=== PATIENT | male | born 1940 | race Caucasian/White ===

== ENCOUNTER 2018-03-01 19:40 | Inpatient (IN) | payer MEDICARE ==
[~2018-03-01] VITALS: Ht 180.3 cm; Wt 110.0 kg
[2018-03-01 20:19] LABS: BASOPHILS # (AUTO) 0.01 x10^3/uL (0-0.1); BASOPHILS % (AUTO) 0 % (0-1); EOSINOPHILS # (AUTO) 0.02 x10^3/uL (0-0.4); EOSINOPHILS % (AUTO) 0 % (1-7); LYMPHOCYTES # (AUTO) 1.49 x10^3/uL (1-3.4); LYMPHOCYTES % (AUTO) 23 % (22-44); MD NO; MEAN CORPUSCULAR HEMOGLOBIN 34.3 pg (27.5-34.5); MEAN CORPUSCULAR HGB CONC 34.8 g/dL (33.2-36.2); MEAN CORPUSCULAR VOLUME 98.7 fL (81-97); MEAN PLATELET VOLUME 7.2 fL (7.4-10.4); MONOCYTES # (AUTO) 0.55 x10^3/uL (0.2-0.8); MONOCYTES % (AUTO) 9 % (2-9); NEUTROPHILS # (AUTO) 4.31 x10^3/uL (1.8-6.8); NEUTROPHILS % (AUTO) 67 % (42-75); PLATELET COUNT 327 x10^3/uL (130-400); RED BLOOD COUNT 3.96 x10^6/uL (4.38-5.82); RED CELL DISTRIBUTION WIDTH 13.7 % (9.4-14.8)
[2018-03-01 20:28] LABS: INTERNATIONAL NORMALIZED RATIO 1.06 (0.93-1.1); PROTHROMBIN TIME 11.2 Seconds (9.6-11.5)
[2018-03-01] MEDS ORDERED: EPLE25TA4 PO (20:28)
[2018-03-01] MEDS ORDERED: LOSA50TA7 PO (20:28)
[2018-03-01] MEDS ORDERED: ASPI-650 PO (20:28)
[2018-03-01] MEDS ORDERED: FLEC100T PO (20:28)
[2018-03-01] MEDS ORDERED: ATOR20TA37 PO (20:28)
[2018-03-01 20:29] LABS: ALBUMIN 4.1 g/dL (3.4-5.0); ANION GAP 7 mmol/L (5-15); CALCIUM 8.6 mg/dL (8.5-10.1); CHLORIDE 107 mmol/L (98-107); CREATININE 1.17 mg/dL (0.7-1.3)
[2018-03-01 21:05] LABS: CULTURE INDICATED? YES; MICROSCOPIC INDICATED
[2018-03-01] MEDS ORDERED: POLYETHYLENE GLYCOL 17 GM PACKET PO PRN (23:00)
[2018-03-01] MEDS ORDERED: ONDANSETRON ODT 4 MG PO PRN (23:00)
[2018-03-01] MEDS ORDERED: BISACODYL 10 MG SUPP PR PRN (23:00)
[2018-03-01] MEDS ORDERED: ACETAMINOPHEN 325 MG TABLET PO PRN (23:00)
[2018-03-01] MEDS: ATORVASTATIN 20 MG TABLET PO SCH (23:46)
[2018-03-01] MEDS: SODIUM CHLORIDE FLUSH 10ML SYR IVF SCH (23:47)
[2018-03-01] MEDS: FLECAINIDE 100MG TABLET PO SCH (23:49)
[2018-03-01 23:58] LABS: FOLATE LEVEL > 20.0 ng/mL (3.1-17.5)
[2018-03-02 00:18] VITALS: BP 134/76
[2018-03-02 04:29] LABS: BASOPHILS # (AUTO) 0.02 x10^3/uL (0-0.1); BASOPHILS % (AUTO) 0 % (0-1); EOSINOPHILS # (AUTO) 0.05 x10^3/uL (0-0.4); EOSINOPHILS % (AUTO) 1 % (1-7); LYMPHOCYTES # (AUTO) 1.81 x10^3/uL (1-3.4); LYMPHOCYTES % (AUTO) 28 % (22-44); MD NO; MEAN CORPUSCULAR HEMOGLOBIN 34.3 pg (27.5-34.5); MEAN CORPUSCULAR HGB CONC 34.7 g/dL (33.2-36.2); MEAN CORPUSCULAR VOLUME 98.7 fL (81-97); MEAN PLATELET VOLUME 7.2 fL (7.4-10.4); MONOCYTES # (AUTO) 0.62 x10^3/uL (0.2-0.8); MONOCYTES % (AUTO) 10 % (2-9); NEUTROPHILS # (AUTO) 3.92 x10^3/uL (1.8-6.8); NEUTROPHILS % (AUTO) 61 % (42-75); PLATELET COUNT 303 x10^3/uL (130-400); RED BLOOD COUNT 3.56 x10^6/uL (4.38-5.82); RED CELL DISTRIBUTION WIDTH 13.7 % (9.4-14.8)
[2018-03-02 04:41] LABS: ALANINE AMINOTRANSFERASE 27 U/L (12-78); ALBUMIN 3.4 g/dL (3.4-5.0); ANION GAP 9 mmol/L (5-15); CALCIUM 8.5 mg/dL (8.5-10.1); CHLORIDE 108 mmol/L (98-107); CREATININE 1.03 mg/dL (0.7-1.3)
[2018-03-02 04:44] LABS: ALKALINE PHOSPHATASE 53 U/L (45-117); BILIRUBIN,TOTAL 0.8 mg/dL (0.2-1.0); TOTAL PROTEIN 6.1 g/dL (6.4-8.2)
[2018-03-02 06:10] VITALS: BP 109/68
[2018-03-02] MEDS: TEMPLATE NON-FORMULARY MED. (Eplerenone 25 MG) HOMEMEDPO SCH (08:10)
[2018-03-02] MEDS: SODIUM CHLORIDE FLUSH 10ML SYR IVF SCH ×2 (08:11→22:11)
[2018-03-02] MEDS: LOSARTAN 50MG TABLET PO SCH (08:12)
[2018-03-02] MEDS: FLECAINIDE 100MG TABLET PO SCH ×2 (08:12→22:11)
[2018-03-02] MEDS: SENNA/DOCUSATE TABLET PO SCH (08:12)
[2018-03-02 08:15] VITALS: BP 106/63
[2018-03-02 13:05] VITALS: BP 98/58
[2018-03-02 19:59] VITALS: BP 111/66
[2018-03-02] MEDS: ATORVASTATIN 20 MG TABLET PO SCH (22:11)
[2018-03-03 02:00] VITALS: BP 103/66
[2018-03-03 04:43] LABS: ANION GAP 5 mmol/L (5-15); CHLORIDE 108 mmol/L (98-107); CREATININE 0.93 mg/dL (0.7-1.3)
[2018-03-03 04:52] LABS: BASOPHILS # (AUTO) 0.03 x10^3/uL (0-0.1); BASOPHILS % (AUTO) 0 % (0-1); EOSINOPHILS # (AUTO) 0.13 x10^3/uL (0-0.4); EOSINOPHILS % (AUTO) 2 % (1-7); LYMPHOCYTES # (AUTO) 2.19 x10^3/uL (1-3.4); LYMPHOCYTES % (AUTO) 28 % (22-44); MD NO; MEAN CORPUSCULAR HEMOGLOBIN 34.1 pg (27.5-34.5); MEAN CORPUSCULAR HGB CONC 34.1 g/dL (33.2-36.2); MEAN PLATELET VOLUME 7.6 fL (7.4-10.4); MONOCYTES # (AUTO) 0.69 x10^3/uL (0.2-0.8); MONOCYTES % (AUTO) 9 % (2-9); NEUTROPHILS # (AUTO) 4.82 x10^3/uL (1.8-6.8); NEUTROPHILS % (AUTO) 61 % (42-75); PLATELET COUNT 281 x10^3/uL (130-400); RED BLOOD COUNT 3.47 x10^6/uL (4.38-5.82); RED CELL DISTRIBUTION WIDTH 13.8 % (9.4-14.8)
[2018-03-03 07:54] VITALS: BP 137/73
[2018-03-03] MEDS: TEMPLATE NON-FORMULARY MED. (Eplerenone 25 MG) HOMEMEDPO SCH (09:49)
[2018-03-03] MEDS: SENNA/DOCUSATE TABLET PO SCH (09:51)
[2018-03-03] MEDS: FLECAINIDE 100MG TABLET PO SCH ×2 (09:52→21:59)
[2018-03-03] MEDS: LOSARTAN 50MG TABLET PO SCH (09:52)
[2018-03-03] MEDS: SODIUM CHLORIDE FLUSH 10ML SYR IVF SCH ×2 (10:01→22:02)
[2018-03-03 13:04] VITALS: BP 135/72
[2018-03-03] MEDS ORDERED: MIDAZOLAM 1 MG/ML, 2ML ONE (17:53)
[2018-03-03] MEDS ORDERED: FENTANYL PF 100 MCG/2ML ONE ×2 (17:53→19:03)
[2018-03-03] MEDS ORDERED: PROPOFOL 10 MG/ML, 20ML ONE (18:02)
[2018-03-03] MEDS ORDERED: ROCURONIUM 10MG/ML,5ML ONE (18:02)
[2018-03-03] MEDS ORDERED: SUCCINYLCHOLINE 20 MG/ML, 10ML ONE (18:02)
[2018-03-03] MEDS ORDERED: ONDANSETRON 2MG/ML, 2ML IV PRN (18:30)
[2018-03-03] MEDS ORDERED: LABETALOL 5MG/ML, 20ML IV PRN (18:30)
[2018-03-03] MEDS ORDERED: HYDROmorphone 1 MG/ML, 1ML IV PRN (18:30)
[2018-03-03] MEDS ORDERED: PROMETHAZINE 12.5 MG SUPP PR PRN (18:30)
[2018-03-03] MEDS ORDERED: hydrALAzine 20 MG/ML, 1ML IV PRN (18:30)
[2018-03-03] MEDS ORDERED: FENTANYL PF 100 MCG/2ML IV PRN (18:30)
[2018-03-03] MEDS ORDERED: ONDANSETRON ODT 8 MG PO PRN (18:30)
[2018-03-03] MEDS ORDERED: OXYcodone 5 MG/5 ML ORAL.SOL UDC ONE (19:03)
[2018-03-03] MEDS: OXYcodone 5 MG/5 ML ORAL.SOL UDC PO PRN ×2 (19:06→23:58)
[2018-03-03 19:52] VITALS: BP 129/69
[2018-03-03] MEDS ORDERED: CEFAZOLIN PMX 1GM/50ML 50 ML IV SCH (20:00)
[2018-03-03] MEDS: OPIUM/BELLADONNA SUPP.RECT 16.2-30 MG PR PRN (21:40)
[2018-03-03] MEDS: GENTAMICIN 80 MG in SODIUM CHLORIDE 0.9% 50 ML IV SCH (21:59)
[2018-03-03] MEDS: ATORVASTATIN 20 MG TABLET PO SCH (21:59)
[2018-03-04] MEDS: CEFAZOLIN PMX 1GM/50ML 50 ML IV SCH ×3 (02:45→17:44)
[2018-03-04 05:56] LABS: BASOPHILS # (AUTO) 0.03 x10^3/uL (0-0.1); BASOPHILS % (AUTO) 0 % (0-1); EOSINOPHILS # (AUTO) 0.09 x10^3/uL (0-0.4); EOSINOPHILS % (AUTO) 1 % (1-7); LYMPHOCYTES # (AUTO) 2.03 x10^3/uL (1-3.4); LYMPHOCYTES % (AUTO) 24 % (22-44); MD NO; MEAN CORPUSCULAR HEMOGLOBIN 34.7 pg (27.5-34.5); MEAN CORPUSCULAR HGB CONC 34.7 g/dL (33.2-36.2); MEAN PLATELET VOLUME 7.8 fL (7.4-10.4); MONOCYTES # (AUTO) 0.59 x10^3/uL (0.2-0.8); MONOCYTES % (AUTO) 7 % (2-9); NEUTROPHILS # (AUTO) 5.64 x10^3/uL (1.8-6.8); NEUTROPHILS % (AUTO) 67 % (42-75); PLATELET COUNT 264 x10^3/uL (130-400); RED BLOOD COUNT 3.18 x10^6/uL (4.38-5.82); RED CELL DISTRIBUTION WIDTH 13.8 % (9.4-14.8)
[2018-03-04 06:06] LABS: ANION GAP 5 mmol/L (5-15); CHLORIDE 108 mmol/L (98-107)
[2018-03-04 06:08] LABS: CREATININE 0.84 mg/dL (0.7-1.3)
[2018-03-04] MEDS: GENTAMICIN 80 MG in SODIUM CHLORIDE 0.9% 50 ML IV SCH ×3 (06:11→22:48)
[2018-03-04 08:00] VITALS: BP 123/72
[2018-03-04] MEDS: TEMPLATE NON-FORMULARY MED. (Eplerenone 25 MG) HOMEMEDPO SCH (09:00)
[2018-03-04] MEDS: SODIUM CHLORIDE FLUSH 10ML SYR IVF SCH ×2 (09:03→22:49)
[2018-03-04] MEDS: FLECAINIDE 100MG TABLET PO SCH ×2 (09:04→22:48)
[2018-03-04] MEDS: LOSARTAN 50MG TABLET PO SCH (09:04)
[2018-03-04] MEDS: SENNA/DOCUSATE TABLET PO SCH (09:04)
[2018-03-04 13:55] VITALS: BP 107/68
[2018-03-04] MEDS: OPIUM/BELLADONNA SUPP.RECT 16.2-30 MG PR PRN ×2 (16:40→23:10)
[2018-03-04 19:48] VITALS: BP 109/64
[2018-03-04] MEDS: ATORVASTATIN 20 MG TABLET PO SCH (22:48)
[2018-03-05 00:38] VITALS: BP 100/59
[2018-03-05] MEDS: CEFAZOLIN PMX 1GM/50ML 50 ML IV SCH ×3 (02:07→18:23)
[2018-03-05] MEDS: OPIUM/BELLADONNA SUPP.RECT 16.2-30 MG PR PRN ×3 (05:11→18:04)
[2018-03-05 05:15] LABS: BASOPHILS # (AUTO) 0.05 x10^3/uL (0-0.1); BASOPHILS % (AUTO) 1 % (0-1); EOSINOPHILS # (AUTO) 0.34 x10^3/uL (0-0.4); EOSINOPHILS % (AUTO) 4 % (1-7); LYMPHOCYTES # (AUTO) 1.91 x10^3/uL (1-3.4); LYMPHOCYTES % (AUTO) 23 % (22-44); MD NO; MEAN CORPUSCULAR HGB CONC 35.3 g/dL (33.2-36.2); MEAN CORPUSCULAR VOLUME 98.9 fL (81-97); MEAN PLATELET VOLUME 7.7 fL (7.4-10.4); MONOCYTES # (AUTO) 0.78 x10^3/uL (0.2-0.8); MONOCYTES % (AUTO) 9 % (2-9); NEUTROPHILS # (AUTO) 5.22 x10^3/uL (1.8-6.8); NEUTROPHILS % (AUTO) 63 % (42-75); PLATELET COUNT 264 x10^3/uL (130-400); RED BLOOD COUNT 3.04 x10^6/uL (4.38-5.82); RED CELL DISTRIBUTION WIDTH 13.4 % (9.4-14.8)
[2018-03-05 05:26] LABS: ALBUMIN 2.9 g/dL (3.4-5.0); ANION GAP 8 mmol/L (5-15); CALCIUM 7.9 mg/dL (8.5-10.1); CHLORIDE 107 mmol/L (98-107)
[2018-03-05 05:30] LABS: ALANINE AMINOTRANSFERASE 19 U/L (12-78); ALKALINE PHOSPHATASE 50 U/L (45-117); BILIRUBIN,TOTAL 0.5 mg/dL (0.2-1.0); CREATININE 0.89 mg/dL (0.7-1.3); TOTAL PROTEIN 5.5 g/dL (6.4-8.2)
[2018-03-05] MEDS: GENTAMICIN 80 MG in SODIUM CHLORIDE 0.9% 50 ML IV SCH ×3 (06:31→22:37)
[2018-03-05 06:45] VITALS: BP 102/64
[2018-03-05] MEDS: TEMPLATE NON-FORMULARY MED. (Eplerenone 25 MG) HOMEMEDPO SCH (09:00)
[2018-03-05] MEDS: SENNA/DOCUSATE TABLET PO SCH (09:00)
[2018-03-05] MEDS: SODIUM CHLORIDE FLUSH 10ML SYR IVF SCH ×2 (09:00→20:19)
[2018-03-05] MEDS: LOSARTAN 50MG TABLET PO SCH (09:21)
[2018-03-05] MEDS: FLECAINIDE 100MG TABLET PO SCH ×2 (09:22→20:18)
[2018-03-05 14:15] VITALS: BP 96/57
[2018-03-05] MEDS ORDERED: SODIUM CHLORIDE 0.9%, IRRG.SOLN 1,000 ML IRRIG SCH (16:30)
[2018-03-05 19:21] VITALS: BP 116/70
[2018-03-05] MEDS: ATORVASTATIN 20 MG TABLET PO SCH (20:18)
[2018-03-06] MEDS: OPIUM/BELLADONNA SUPP.RECT 16.2-30 MG PR PRN ×3 (00:06→21:15)
[2018-03-06 01:19] VITALS: BP_SYST 111; BP_SYST 114; BP_DIAS 69
[2018-03-06] MEDS: CEFAZOLIN PMX 1GM/50ML 50 ML IV SCH ×3 (01:55→16:19)
[2018-03-06 04:31] LABS: BASOPHILS # (AUTO) 0.04 x10^3/uL (0-0.1); BASOPHILS % (AUTO) 1 % (0-1); EOSINOPHILS % (AUTO) 6 % (1-7); LYMPHOCYTES # (AUTO) 1.62 x10^3/uL (1-3.4); LYMPHOCYTES % (AUTO) 19 % (22-44); MD NO; MEAN CORPUSCULAR HEMOGLOBIN 34.7 pg (27.5-34.5); MEAN CORPUSCULAR HGB CONC 34.7 g/dL (33.2-36.2); MEAN PLATELET VOLUME 7.5 fL (7.4-10.4); MONOCYTES # (AUTO) 0.74 x10^3/uL (0.2-0.8); MONOCYTES % (AUTO) 9 % (2-9); NEUTROPHILS # (AUTO) 5.67 x10^3/uL (1.8-6.8); NEUTROPHILS % (AUTO) 66 % (42-75); PLATELET COUNT 283 x10^3/uL (130-400); RED BLOOD COUNT 3.08 x10^6/uL (4.38-5.82); RED CELL DISTRIBUTION WIDTH 13.4 % (9.4-14.8)
[2018-03-06 04:34] LABS: ALBUMIN 2.8 g/dL (3.4-5.0); ANION GAP 6 mmol/L (5-15); CHLORIDE 106 mmol/L (98-107); CREATININE 0.87 mg/dL (0.7-1.3)
[2018-03-06] MEDS: GENTAMICIN 80 MG in SODIUM CHLORIDE 0.9% 50 ML IV SCH (06:03)
[2018-03-06 07:30] VITALS: BP 110/61
[2018-03-06] MEDS ORDERED: MAGNESIUM SULFATE PMX 2GM/50ML 50 ML IV ONE (07:30)
[2018-03-06] MEDS: SENNA/DOCUSATE TABLET PO SCH (07:48)
[2018-03-06] MEDS: FLECAINIDE 100MG TABLET PO SCH ×2 (07:48→21:11)
[2018-03-06] MEDS: LOSARTAN 50MG TABLET PO SCH (07:48)
[2018-03-06] MEDS: SODIUM CHLORIDE FLUSH 10ML SYR IVF SCH ×2 (07:49→21:12)
[2018-03-06] MEDS: TEMPLATE NON-FORMULARY MED. (Eplerenone 25 MG) HOMEMEDPO SCH (08:41)
[2018-03-06 14:10] VITALS: BP 113/68
[2018-03-06 19:22] VITALS: BP 110/62
[2018-03-06] MEDS: ATORVASTATIN 20 MG TABLET PO SCH (21:12)
[2018-03-07] MEDS: OPIUM/BELLADONNA SUPP.RECT 16.2-30 MG PR PRN (01:15)
[2018-03-07 01:26] VITALS: BP 104/56
[2018-03-07 01:48] LABS: MICROSCOPIC INDICATED
[2018-03-07] MEDS: CEFAZOLIN PMX 1GM/50ML 50 ML IV SCH (02:20)
[2018-03-07 05:19] LABS: BASOPHILS # (AUTO) 0.04 x10^3/uL (0-0.1); BASOPHILS % (AUTO) 1 % (0-1); EOSINOPHILS # (AUTO) 0.42 x10^3/uL (0-0.4); EOSINOPHILS % (AUTO) 6 % (1-7); LYMPHOCYTES # (AUTO) 1.81 x10^3/uL (1-3.4); LYMPHOCYTES % (AUTO) 23 % (22-44); MD NO; MEAN CORPUSCULAR HEMOGLOBIN 34.6 pg (27.5-34.5); MEAN CORPUSCULAR HGB CONC 34.7 g/dL (33.2-36.2); MEAN CORPUSCULAR VOLUME 99.6 fL (81-97); MEAN PLATELET VOLUME 7.6 fL (7.4-10.4); MONOCYTES # (AUTO) 0.85 x10^3/uL (0.2-0.8); MONOCYTES % (AUTO) 11 % (2-9); NEUTROPHILS # (AUTO) 4.61 x10^3/uL (1.8-6.8); NEUTROPHILS % (AUTO) 60 % (42-75); PLATELET COUNT 272 x10^3/uL (130-400); RED BLOOD COUNT 2.97 x10^6/uL (4.38-5.82); RED CELL DISTRIBUTION WIDTH 13.3 % (9.4-14.8)
[2018-03-07 05:25] LABS: ALBUMIN 2.7 g/dL (3.4-5.0); ANION GAP 5 mmol/L (5-15); CALCIUM 8.2 mg/dL (8.5-10.1); CHLORIDE 105 mmol/L (98-107)
[2018-03-07 05:28] LABS: ALANINE AMINOTRANSFERASE 18 U/L (12-78); ALKALINE PHOSPHATASE 47 U/L (45-117); BILIRUBIN,TOTAL 1.1 mg/dL (0.2-1.0); CREATININE 0.93 mg/dL (0.7-1.3); TOTAL PROTEIN 5.9 g/dL (6.4-8.2)
[2018-03-07] MEDS: CEFTRIAXONE PMX 2GM/50ML 50 ML IV SCH (06:40)
[2018-03-07 07:53] VITALS: BP 114/67
[2018-03-07] MEDS: TEMPLATE NON-FORMULARY MED. (Eplerenone 25 MG) HOMEMEDPO SCH (09:00)
[2018-03-07] MEDS: LOSARTAN 50MG TABLET PO SCH (09:17)
[2018-03-07] MEDS: FLECAINIDE 100MG TABLET PO SCH ×2 (09:17→21:30)
[2018-03-07] MEDS: SODIUM CHLORIDE FLUSH 10ML SYR IVF SCH ×2 (09:17→21:30)
[2018-03-07] MEDS: SENNA/DOCUSATE TABLET PO SCH (09:18)
[2018-03-07] MEDS ORDERED: TAMSULOSIN 0.4 MG CAP.ER.24H PO SCH (10:30)
[2018-03-07] MEDS: FINASTERIDE 5 MG TABLET PO SCH (10:30)
[2018-03-07 17:15] VITALS: BP 112/61
[2018-03-07 19:13] VITALS: BP 117/69
[2018-03-07] MEDS: ATORVASTATIN 20 MG TABLET PO SCH (21:29)
[2018-03-08 01:37] VITALS: BP 109/73
[2018-03-08 05:13] LABS: BASOPHILS # (AUTO) 0.04 x10^3/uL (0-0.1); BASOPHILS % (AUTO) 1 % (0-1); EOSINOPHILS # (AUTO) 0.48 x10^3/uL (0-0.4); EOSINOPHILS % (AUTO) 6 % (1-7); LYMPHOCYTES # (AUTO) 1.85 x10^3/uL (1-3.4); LYMPHOCYTES % (AUTO) 25 % (22-44); MD NO; MEAN CORPUSCULAR HEMOGLOBIN 33.2 pg (27.5-34.5); MEAN CORPUSCULAR HGB CONC 33.4 g/dL (33.2-36.2); MEAN CORPUSCULAR VOLUME 99.3 fL (81-97); MEAN PLATELET VOLUME 7.5 fL (7.4-10.4); MONOCYTES # (AUTO) 0.69 x10^3/uL (0.2-0.8); MONOCYTES % (AUTO) 9 % (2-9); NEUTROPHILS % (AUTO) 60 % (42-75); PLATELET COUNT 315 x10^3/uL (130-400); RED BLOOD COUNT 2.93 x10^6/uL (4.38-5.82); RED CELL DISTRIBUTION WIDTH 12.9 % (9.4-14.8)
[2018-03-08 05:24] LABS: ALBUMIN 2.8 g/dL (3.4-5.0); ANION GAP 6 mmol/L (5-15); CALCIUM 7.9 mg/dL (8.5-10.1); CHLORIDE 105 mmol/L (98-107)
[2018-03-08 05:25] LABS: CREATININE 0.98 mg/dL (0.7-1.3)
[2018-03-08] MEDS: CEFTRIAXONE PMX 2GM/50ML 50 ML IV SCH (06:33)
[2018-03-08] MEDS: TEMPLATE NON-FORMULARY MED. (Eplerenone 25 MG) HOMEMEDPO SCH (09:00)
[2018-03-08] MEDS: FINASTERIDE 5 MG TABLET PO SCH (09:00)
[2018-03-08] MEDS: SENNA/DOCUSATE TABLET PO SCH (09:00)
[2018-03-08] MEDS: SODIUM CHLORIDE FLUSH 10ML SYR IVF SCH ×2 (09:00→20:14)
[2018-03-08 09:21] VITALS: BP 105/66
[2018-03-08] MEDS: FLECAINIDE 100MG TABLET PO SCH ×2 (09:54→20:13)
[2018-03-08] MEDS: LOSARTAN 50MG TABLET PO SCH (09:54)
[2018-03-08 15:01] VITALS: BP 98/62
[2018-03-08 19:42] VITALS: BP 115/67
[2018-03-08] MEDS: ATORVASTATIN 20 MG TABLET PO SCH (20:13)
[2018-03-09 00:24] VITALS: BP 118/68
[2018-03-09] MEDS: CEFTRIAXONE PMX 2GM/50ML 50 ML IV SCH (06:23)
[2018-03-09 06:43] LABS: BASOPHILS # (AUTO) 0.07 x10^3/uL (0-0.1); BASOPHILS % (AUTO) 1 % (0-1); EOSINOPHILS # (AUTO) 0.47 x10^3/uL (0-0.4); EOSINOPHILS % (AUTO) 7 % (1-7); LYMPHOCYTES # (AUTO) 1.67 x10^3/uL (1-3.4); LYMPHOCYTES % (AUTO) 25 % (22-44); MD NO; MEAN CORPUSCULAR HEMOGLOBIN 34.3 pg (27.5-34.5); MEAN CORPUSCULAR HGB CONC 34.6 g/dL (33.2-36.2); MEAN CORPUSCULAR VOLUME 99.1 fL (81-97); MEAN PLATELET VOLUME 7.2 fL (7.4-10.4); MONOCYTES # (AUTO) 0.63 x10^3/uL (0.2-0.8); MONOCYTES % (AUTO) 9 % (2-9); NEUTROPHILS # (AUTO) 3.88 x10^3/uL (1.8-6.8); NEUTROPHILS % (AUTO) 58 % (42-75); PLATELET COUNT 358 x10^3/uL (130-400); RED BLOOD COUNT 3.06 x10^6/uL (4.38-5.82); RED CELL DISTRIBUTION WIDTH 13.6 % (9.4-14.8)
[2018-03-09 06:56] LABS: ANION GAP 7 mmol/L (5-15); CALCIUM 8.6 mg/dL (8.5-10.1); CHLORIDE 106 mmol/L (98-107); CREATININE 0.92 mg/dL (0.7-1.3)
[2018-03-09 07:43] VITALS: BP 123/71
[2018-03-09] MEDS ORDERED: CEFD300C37 PO (08:02)
[2018-03-09] MEDS ORDERED: FINA5TAB4 PO (08:02)
[2018-03-09] MEDS: FINASTERIDE 5 MG TABLET PO SCH (08:11)
[2018-03-09] MEDS: FLECAINIDE 100MG TABLET PO SCH (08:11)
[2018-03-09] MEDS: SENNA/DOCUSATE TABLET PO SCH (08:11)
[2018-03-09] MEDS: LOSARTAN 50MG TABLET PO SCH (08:11)
[2018-03-09] MEDS: SODIUM CHLORIDE FLUSH 10ML SYR IVF SCH (08:12)
[2018-03-09] MEDS: TEMPLATE NON-FORMULARY MED. (Eplerenone 25 MG) HOMEMEDPO SCH (08:12)
== END 2018-03-09 09:57 | disposition home or self-care (01) | DRG 713 ==
LOC: ED 20:51 → EDIP 22:52 → 3NW 23:15 → DCLOUNGE 03-09 09:40
PROVIDERS: ADMIT Internal Medicine; ATTEND Internal Medicine
PROC: 0T9B70Z Drainage of Bladder with Drainage Device, Via Natural or Artificial Opening (ICD-10-PCS; 2018-03-01)
PROC: 3C1ZX8Z Irrigation of Indwelling Device using Irrigating Substance, External Approach (ICD-10-PCS; 2018-03-01)
PROC: 0TCB8ZZ Extirpation of Matter from Bladder, Via Natural or Artificial Opening Endoscopic (ICD-10-PCS; 2018-03-03)
PROC: 0V508ZZ Destruction of Prostate, Via Natural or Artificial Opening Endoscopic (ICD-10-PCS; 2018-03-03)
PROC: 0VT08ZZ Resection of Prostate, Via Natural or Artificial Opening Endoscopic (ICD-10-PCS; principal; 2018-03-03 18:00)
DX: N40.0 Benign prostatic hyperplasia without lower urinary tract symptoms (principal); D62 Acute posthemorrhagic anemia; D68.69 Other thrombophilia; I48.92 Unspecified atrial flutter; N39.0 Urinary tract infection, site not specified; N32.89 Other specified disorders of bladder; I86.2 Pelvic varices; R31.0 Gross hematuria; D53.9 Nutritional anemia, unspecified; E78.5 Hyperlipidemia, unspecified; I10 Essential (primary) hypertension; Z96.653 Presence of artificial knee joint, bilateral; E78.00 Pure hypercholesterolemia, unspecified; I11.9 Hypertensive heart disease without heart failure; I48.91 Unspecified atrial fibrillation; Z79.82 Long term (current) use of aspirin; Z90.79 Acquired absence of other genital organ(s); Z79.899 Other long term (current) drug therapy; Z88.8 Allergy status to other drugs, medicaments and biological substances; Z90.49 Acquired absence of other specified parts of digestive tract
CPT/HCPCS: 36415; 71045; 80048; 80053; 81001; 82040; 82607; 82746; 83735; 84100; 85025; 85610; 85730; 87040; 87077; 87086; 87186; 88305; 93005; 99285; G0378; J0690; J0696; J2250; J2704; J3010; J0330; J1580; J3475